=== PATIENT | female | born 1995 | race African-American/Black ===

== ENCOUNTER 2020-03-18 12:27 | Emergency (ER) | payer MEDICAID ==
[~2020-03-18] VITALS: Ht 162.6 cm; Wt 51.7 kg
[2020-03-18 13:11] VITALS: Ht 162.6 cm; Wt 51.7 kg
[2020-03-18 14:22] VITALS: BP 113/77
== END 2020-03-18 14:22 | disposition home or self-care (01) ==
LOC: ED 12:27
DX: H60.92 Unspecified otitis externa, left ear (principal)